=== PATIENT | female | born 1995 | race Caucasian/White ===

== ENCOUNTER 2016-09-23 16:31 | Emergency (ER) | payer OTHER ==
[~2016-09-23] VITALS: Ht 154.9 cm; Wt 68.2 kg
[~2016-09-23 16:31] MED LIST: ACET-66 PO; IBUP-1546 PO
[2016-09-23] MEDS ORDERED: KETOROLAC TROMETHAMINE 30 MG/ML VIAL IM ONE (18:30)
[2016-09-23] MEDS ORDERED: METOCLOPRAMIDE HCL 5 MG/ML 2 ML VIAL IM ONE (18:30)
[2016-09-23] MEDS ORDERED: DiphenhydrAMINE HCL 50 MG/ML VIAL IM ONE (18:30)
[2016-09-23 18:45] LABS: BASOPHILS % (AUTO) 0.3 % (0.0-2.0); EOSINOPHILS % (AUTO) 0.8 % (1.0-6.0); HEMATOCRIT 43.2 % (36-46); HEMOGLOBIN 13.7 g/dL (12.0-16.0); LYMPHOCYTES # (AUTO) 2.4 K/uL (1.0-4.8); LYMPHOCYTES % (AUTO) 22.5 % (22.0-44.0); MEAN CORPUSCULAR HEMOGLOBIN 25.9 pg (26.0-34.0); MEAN CORPUSCULAR HGB CONC 31.7 G/dL (31.0-37.0); MEAN CORPUSCULAR VOLUME 82 fL (80-100); MONOCYTES # (AUTO) 0.6 K/uL (0.1-1.0); MONOCYTES % (AUTO) 5.6 % (2.0-9.0); NEUTROPHILS # (AUTO) 7.6 K/uL (1.8-7.7); NEUTROPHILS % (AUTO) 70.8 % (40.0-70.0); PLATELET COUNT (AUTO) 231 K/uL (150-450); RED BLOOD CELL COUNT(AUTO) 5.29 MIL/uL (4.00-5.20); RED CELL DISTRIBUTION WIDTH 14.9 % (11.5-14.5); WHITE BLOOD COUNT (AUTO) 10.8 K/uL (4.5-11.0)
[2016-09-23 18:53] LABS: ANION GAP 12 mmol/L (8-16); CALCIUM, TOTAL 9.3 mg/dL (8.8-10.5); CARBON DIOXIDE 25 mmol/L (22-29); CHLORIDE 101 mmol/L (98-107); GLOMERULAR FILTR. RATE CALC > 60 mL/min (>60); POTASSIUM 3.9 mmol/L (3.5-5.1); SODIUM SERUM 138 mmol/L (136-145); UREA NITROGEN, BLOOD 8 mg/dL (7-18)
[2016-09-23 18:59] LABS: ALANINE AMINOTRANSFERASE 45 U/L (12-78); ALBUMIN 4.2 g/dL (3.4-5.0); ASPARTATE AMINOTRANSFERASE 23 U/L (15-37); BILIRUBIN,TOTAL 0.2 mg/dL (0.1-1.0); TOTAL PROTEIN, SERUM 8.4 g/dL (6.4-8.2)
[2016-09-23 21:03] VITALS: BP 106/48
== END 2016-09-23 21:03 | disposition home or self-care (01) ==
LOC: EMS 16:32
DX: R51 Headache (principal); H53.149 Visual discomfort, unspecified
CPT/HCPCS: 36415; 70450; 80053; 84703; 85025; 96372; 99285; J1200; J1885; J2765

== ENCOUNTER 2018-09-03 07:12 | Emergency (ER) | payer SELFPAY ==
[~2018-09-03] VITALS: Ht 154.9 cm; Wt 80.0 kg
[2018-09-03 07:13] VITALS: BP 132/88
[2018-09-03] MEDS ORDERED: IBUP100T53 PO (07:19)
[2018-09-03] MEDS ORDERED: DEXAMETHASONE SOD PHOS 4 MG/ML 5 ML VIAL IM ONE (08:15)
[2018-09-03] MEDS ORDERED: LIDOCAINE/PF 1% 2 ML VIAL IM ONE (08:15)
[2018-09-03] MEDS ORDERED: CefTRIAXone SODIUM 1 GM/VIAL IM ONE (08:15)
== END 2018-09-03 08:49 | disposition home or self-care (01) ==
LOC: EMS 07:14
DX: J03.90 Acute tonsillitis, unspecified (principal)
CPT/HCPCS: 96372; 99283; J0696; J1100; J3490

== ENCOUNTER 2019-03-17 01:45 | Emergency (ER) | payer MEDICAID ==
[~2019-03-17] VITALS: Ht 154.9 cm; Wt 77.3 kg
[~2019-03-17 01:45] MED LIST changes: -ACET-66 PO; -IBUP-1546 PO; +IBUP100T53 PO
[2019-03-17] MEDS ORDERED: IBUPROFEN 800 MG TABLET PO ONE (04:15)
[2019-03-17 04:30] VITALS: BP 129/77
== END 2019-03-17 04:45 | disposition home or self-care (01) ==
LOC: EMS 01:46
DX: R07.89 Other chest pain (principal)
CPT/HCPCS: 85379; 93005

== ENCOUNTER 2021-05-05 11:17 | Emergency (ER) | payer MEDICAID, OTHER ==
[~2021-05-05] VITALS: Ht 154.9 cm; Wt 86.4 kg
[2021-05-05 11:46] VITALS: BP 127/96
== END 2021-05-05 14:00 | disposition home or self-care (01) ==
LOC: EMS 12:04
DX: U07.1 COVID-19 (principal)
CPT/HCPCS: 87430; 99283; U0003

== ENCOUNTER 2022-08-12 06:36 | Emergency (ER) | payer OTHER ==
[~2022-08-12] VITALS: Ht 165.1 cm; Wt 86.4 kg
[2022-08-12 06:49] LABS: COVID AG,FIA SOURCE NASOPHARYNGEAL
[2022-08-12 07:07] LABS: RAPID GROUP A STREP NEGATIVE (NEGATIVE)
[2022-08-12 07:16] LABS: INFLUENZA TYPE A NEGATIVE FOR TYPE A (NEGATIVE); INFLUENZA TYPE B NEGATIVE FOR TYPE B (NEGATIVE)
[2022-08-12] MEDS ORDERED: DEXAMETHASONE SOD PHOS 4 MG/ML VIAL IM ONE (07:30)
[2022-08-12] MEDS ORDERED: KETOROLAC TROMETHAMINE 30 MG/ML VIAL IM ONE (07:30)
[2022-08-12] MEDS ORDERED: ACETAMINOPHEN 500 MG TABLET PO ONE (07:30)
[2022-08-12 07:31] VITALS: BP 110/82
[2022-08-12] MEDS ORDERED: IBUP-1492 PO (07:35)
== END 2022-08-12 08:15 | disposition home or self-care (01) ==
LOC: EMS 06:37
DX: J02.8 Acute pharyngitis due to other specified organisms (principal); Z20.822 Contact with and (suspected) exposure to COVID-19
CPT/HCPCS: 99284; 87426; 87430; 87804; 96372; J1100; J1885